=== PATIENT | male | born 1965 | race Caucasian/White ===

== ENCOUNTER → 2016-12-27 | Outpatient (CLI) | payer BC ==
[~2016-12-27] MED LIST: CARDIZEM LA240 MG PO; CHEWABLE ASPIRI81 MG PO; CLEOCIN; EFFIENT10 MG PO; LOPRESSOR PO; LORTAB 5/500 TA1 TA1 PO; MELATONIN5 MG SL; MULTI-DAY VITAM1 TAB PO; PRILOSEC; SIMVASTATIN40 MG PO; ULTRAM PO; ZANTAC150 MG PO
--- NOTE | ~2016-12-27 | CT4 ---
[facility] A Service of [facility] RADIOLOGY TEXT RESULTS PATIENT: JOSE A MENDIOLA LOCATION: [facility] : 67 UNIT #: [id number] AGE: [address]: KIMBERLEE MICHELLE SEX: M ORDER DR: [id number] [place] [id number] O MR#: [id number] Acc #: [id number] NAME: JOSE A MENDIOLA : 1965 SEX: M STUDY DATE/TIME: 12/27/2016 8:23 UNIT: [facility] ROOM: STUDY DESCRIPTION: CT Abd and Pelv Wo Cont Attending Physician: Kimberlee Michelle Aprn Referring Physician: Kimberlee Michelle Aprn Ordering Physician: Kimberlee Michelle Aprn Primary Care Physician: Kimberlee Michelle Aprn MEDICAL IMAGING REPORT This report is preliminary unless electronic signature is present. EXAM CT of the abdomen and pelvis without contrast media HISTORY Left flank pain intermittently for 4 months. TECHNIQUE Transaxial imaging of the abdomen and pelvis was performed without contrast media. This CT exam was performed with one or more of the following radiation dose reduction techniques: automatic exposure control, adjustment of mA and/or kV according to patient size, and iterative reconstruction. FINDINGS Lung bases are unremarkable. There is diffuse hepatic steatosis. Multiple gallstones are seen dependently in the gallbladder. Spleen is normal. Adrenal glands normal. Pancreas is normal. 2.0 mm nonobstructing stone in right lower pole shara. No evidence of obstructive uropathy. No ureteral calculi seen. The colon is of normal course and caliber. Appendix is normal. There are bilateral pars defects at the L5 level. There is multilevel degenerative disc disease in the lumbar spine. CONCLUSION 1. Hepatic steatosis. 2. Cholelithiasis. 3. 2.0 mm nonobstructing stone lower pole right kidney. 4. Bilateral pars defects L5. Multilevel level lumbar degenerative disc disease. Dictated by... [facility] A Service of [facility] RADIOLOGY TEXT RESULTS PATIENT: JOSE A MENDIOLA LOCATION: [facility] : 67 UNIT #: [id number] AGE: [address]: KIMBERLEE MICHELLE SEX: M ORDER DR: Aleksandr Moyer M.D. THIS IS AN ELECTRONICALLY VERIFIED REPORT Aleksandr Moyer M.D. at 12/27/2016 4:26 PM Marvin TD: 12/27/2016 09:45 JOB #: [id number] MEDICAL IMAGING REPORT Page 1 of 1
== END | disposition home or self-care (01) ==
LOC: SCT 08:11
DX: R10.9 Unspecified abdominal pain (principal); K76.0 Fatty (change of) liver, not elsewhere classified; K80.20 Calculus of gallbladder without cholecystitis without obstruction; N20.0 Calculus of kidney; M51.36 Other intervertebral disc degeneration, lumbar region
CPT/HCPCS: 74176

== ENCOUNTER → 2017-01-20 | Day surgery (SDC) | payer BC ==
--- NOTE | ~2017-01-20 | OR ---
Unit #: [id number] #: [id number] Patient: JOSE A MENDIOLA [id number] [address] [place], [place] [address] [id number] O MR#: [id number] NAME: JOSE A MENDIOLA. ROOM: Date of Procedure: 01/20/2017 Admission Date: 01/20/2017 Surgeon: Jhonny Messer M.D. : 1965 Attending Physician: Jhonny Messer M.D. Referring Physician: Jhonny Messer M.D. Primary Care Physician: Lisa Michelle Aprn OPERATIVE REPORT PREOPERATIVE DIAGNOSIS Screening colonoscopy. POSTOPERATIVE DIAGNOSIS Screening colonoscopy. PROCEDURE PERFORMED Colonoscopy to cecum. ANESTHESIA Monitored anesthesia care. FINDINGS The patient had intermittent areas of poor prep. No gross abnormalities were seen in the colon. SPECIMENS None. COMPLICATIONS None apparent. CONDITION The patient tolerated the procedure well. INDICATIONS FOR PROCEDURE The patient is a 51-year-old white male, who has never had a screening colonoscopy performed. He presents at this time for screening colonoscopy. DESCRIPTION OF PROCEDURE After obtaining informed consent, the patient was brought to the endoscopy suite, and after adequate monitored anesthesia care, had the colonoscope placed through the anus and slowly advanced to the level of the cecum with the lumen always in view. It should be noted that the patient had intermittent areas of poor prep. The cecum was normal as was the ileocecal valve. We were able to irrigate out the vast majority of the colon. There was no gross abnormality seen in the ascending colon, hepatic flexure, transverse colon, splenic flexure, descending colon, sigmoid colon, or rectum. Some small polyps could be missed due to poor prep. On retroflexing in the rectum to the anorectal junction, there was no abnormality seen. The scope was removed without difficulty. On Unit #: [id number] #: [id number] Patient: JOSE A MENDIOLA digital examination, there was good sphincter tone. No masses palpable. The patient went from the endoscopy suite to the recovery area in stable condition. RECOMMENDATIONS High-fiber diet, lots of liquids, tucks or wipes p.r.n. Follow up as needed in office. Dictated by... Qi Messina/mundo TD: 01/20/2017 19:47 JOB #: [id number] CC: Theodore Hubbard M.D. OPERATIVE REPORT Page 1 of 1 X Jhonny Messer MD PROCEDURE OPERATIVE NOTE
== END | disposition home or self-care (01) ==
LOC: COPS 10:14
PROVIDERS: Surgery
PROC: 0DJD8ZZ Inspection of Lower Intestinal Tract, Via Natural or Artificial Opening Endoscopic (ICD-10-PCS; principal; 2017-01-20 12:30)
DX: Z12.11 Encounter for screening for malignant neoplasm of colon (principal); I10 Essential (primary) hypertension; E78.00 Pure hypercholesterolemia, unspecified; J44.9 Chronic obstructive pulmonary disease, unspecified; C95.90 Leukemia, unspecified not having achieved remission; Z79.82 Long term (current) use of aspirin; Z79.899 Other long term (current) drug therapy; Z96.652 Presence of left artificial knee joint; Z95.5 Presence of coronary angioplasty implant and graft; Z88.5 Allergy status to narcotic agent; Z88.8 Allergy status to other drugs, medicaments and biological substances; Z88.0 Allergy status to penicillin
CPT/HCPCS: J2250